=== PATIENT | female | born 1965 | race Caucasian/White ===

== ENCOUNTER 2024-06-07 08:48 | Emergency (ER) | payer MEDICARE, SELFPAY ==
--- NOTE | ~2024-06-07 | XR_ITS ---
EXAMINATION: XR FEMUR 2 VIEWS RIGHT HISTORY: Rt femur pain COMPARISON: There are no prior studies available for comparison. FINDINGS: AP and lateral views of the right femur are submitted. Osseous mineralization is normal. There is no fracture or dislocation. The visualized hip and knee joint spaces are preserved. The soft tissues are unremarkable. XR/XR femur RT 2V IMPRESSION: Unremarkable examination of the right femur. Electronically signed by: Nain Benavidez MD 06/07/2024 11:01 AM [facility]
--- NOTE | ~2024-06-07 | XR_ITS ---
EXAMINATION: XR LUMBAR SPINE 2-3 VIEWS HISTORY: lower back pain COMPARISON: Comparison is made with the prior examination dated 05/26/2014. FINDINGS: AP, lateral, and coned down views of the lumbar spine are submitted. Osseous mineralization is normal. Again seen is moderate rotatory levoscoliosis. Five nonrib-bearing lumbar vertebral bodies are identified, maintaining normal height without evidence of fracture or spondylolisthesis. There is moderate degenerative disc disease at the L3-4 level with disc space narrowing and osteophyte formation. Milder changes are noted at the remaining levels. The posterior elements are intact. The visualized paraspinal soft tissues are unremarkable. XR/XR lumbar spine 2-3V IMPRESSION: Moderate rotatory levoscoliosis. Degenerative disc disease as described. Electronically signed by: Nain Benavidez MD 06/07/2024 11:00 AM [facility]
--- NOTE | ~2024-06-07 | US_ITS ---
EXAMINATION: US NONINVASIVE ASSESSMENT OF THE RIGHT LOWER EXTREMITY WITH ARTERIAL DUPLEX CLINICAL INFORMATION: Right lower extremity pain, swelling. Negative DVT. COMPARISON: None available. TECHNIQUE: Duplex Doppler techniques with waveform analysis and measurement of velocities in the common femoral, profunda femoris, superficial femoral, popliteal and tibial arteries were performed. In addition, ankle pulse volume recordings, ankle pressure measurements and ankle brachial indices were obtained of the lower extremity arterial system. The study was performed only at rest. FINDINGS: RIGHT LOWER EXTREMITY DUPLEX ULTRASOUND. PEAK SYSTOLIC VELOCITIES: Common femoral artery: 108 cm/s. Waveforms: Triphasic Profunda femoris artery: 82 cm/s. Waveforms: Triphasic Superficial femoral artery (proximal): 101 cm/s. Waveforms: Triphasic Superficial femoral artery (mid): 77 cm/s. Waveforms: Triphasic Superficial femoral artery (distal): 75 cm/s. Waveforms: Triphasic Popliteal artery: 96 cm/s Waveforms: Triphasic Posterior tibial artery: 137 cm/s Waveforms: Triphasic US/US arterial duplex LE RT IMPRESSION: Based on peak systolic velocities and wave forms, no evidence of significant major arterial stenosis or occlusion in the RIGHT lower extremity. Electronically signed by: Dayo Lynch MD 06/07/2024 12:13 PM [facility]
--- NOTE | ~2024-06-07 | US_ITS ---
EXAMINATION: US TRIPLEX LOWER EXTREMITY, RIGHT CLINICAL INFORMATION: Right lower extremity swelling. COMPARISON: None available. TECHNIQUE: Color-flow triplex imaging with spectral analysis and compression Doppler were performed on the right lower extremity. FINDINGS: Respiratory variation, normal compression and augmented flow are noted throughout the right lower extremity. The visualized common femoral vein, superficial femoral vein, profunda femoral vein, popliteal vein and midcalf peroneal and posterior tibial venous segments show no evidence of deep venous thrombosis. There is no Sarmiento's cyst. US/US venous duplex LE RT IMPRESSION: No evidence of deep venous thrombosis involving the right lower extremity. Electronically signed by: Dayo Lynch MD 06/07/2024 12:08 PM [facility] [place]
[2024-06-07 09:07] VITALS: BP 115/75; PULSE 107; RESP 18; TEMP 37.3; O2SAT 99; BMI 28.3
--- NOTE | 2024-06-07 09:59 | ED_ITS ---
HPI - Extremity Injury (Lower) General Chief Complaint: Extremity Injury, Lower Stated Complaint: Low back pain r leg pain Time Seen by Provider: 06/07/24 09:12 Source: patient Mode of arrival: ambulatory Limitations: no limitations History of Present Illness ED Provider: ALMA Earl HPI Narrative: This is a 58-year-old female who denies past medical history presenting to the emergency department with complaints of severe right lower extremity pain for the past few days worsening. Patient reports pain is so severe she feels like she is not able to walk.. She says she thinks it is accompanied with back pain however back pain is always present. She reports a sharp pain behind her right thigh. It does not go past her knee. She denies any falls or trauma. When I asked her to point to where it hurts smell she points in her mid thigh region. She denies numbness, tingling, fevers, chills, headache, vision changes, dizziness, recent illness, urinary and bowel incontinence/retention. Related Data Previous Rx's ?Medication ?Instructions ?Recorded gabapentin 300 mg capsule 300 mg PO BID 14 days #28 caps 06/07/24 ketorolac 10 mg tablet 10 mg PO TID PRN pain 5 days #15 06/07/24 tabs Allergies Allergy/AdvReac Type Severity Reaction Status Date / Time tramadol [TRAMADOL] Allergy Unknown NAUSEA/VOMI Verified 06/07/24 09:08 TING Review of Systems 2 Review of Systems: Yes all other systems are reviewed and are negative PMFSH Past Medical History Attestation statement: The following information was validated with the patient. Source: old records reviewed and nursing notes reviewed Social History Social History Smoked in Last 30 Days: Yes Use of substances other than those prescribed or required for medical reasons: No Advance Directives: No Advance Directives Information Provided: Yes Patient : No Physical Exam 2 Vital Signs: Vital Signs: Last Vital Signs Temp 97.1 F 06/07/24 11:58 Pulse 91 06/07/24 11:58 Resp 18 06/07/24 11:58 BP 152/82 H 06/07/24 11:58 Pulse Ox 97 06/07/24 11:58 O2 Del Method Room Air 06/07/24 11:58 BMI result Body Mass Index 28.3 vss Appearance: Alert.? Oriented X3.? No acute distress.? Head: Normocephalic, atraumatic, no step-offs or deformities Eyes: Pupils equal, round and reactive to light.? CVS: Normal heart rate and rhythm.? Pulses normal.? Respiratory: No respiratory distress.? Breath sounds normal.? Abdomen: Soft and nontender.? Skin: Skin warm and dry.? Normal skin color.? Normal skin turgor.? Extremities: No lower extremity edema.? No calf ttp. 5/5 strength to bilateral upper and lower extremities Back: No midline tenderness, no C-spine tenderness, very painful range of motion to lower back pain in all directions. There is right-sided lumbosacral discomfort on palpation. Also discomfort with palpation overlying the right glute. Neuro: Oriented X 3.? No motor deficit.? No sensory deficit. CN 2-12 intact Course Reevaluation(s) Reevaluation #1: CBC unremarkable. Chemistry no acute findings meeting intervention. Mild elevation in BUN however he is tolerating p.o.. Femur x-ray unremarkable. X- ray of lumbar spine moderate relatively levoscoliosis. Degenerative disc disease noted. Venous duplex with no evidence of DVT in the right lower extremity. Lower extremity arterial scan with no evidence of significant major arterial stenosis or occlusion in the right lower extremity. Patient is now ambulatory and states she feels much better. This is supporting the diagnosis of lumbar radiculopathy. Will discharge her home with Toradol and gabapentin. Educated patient on diagnosis and treatment plan, answered all question, patient verbalizes understanding. At this time patient will be discharged home, advised to return with new or worsening symptoms. Educated on worrisome signs and symptoms and when to return. At this time I feel comfortable discharge home. Time: 13:07 Medications Administered Discontinued Medications Generic Name Dose Route Start Last Admin Trade Name Felipeq PRN Reason Stop Dose Admin Gabapentin 300 mg 06/07/24 10:09 06/07/24 10:24 Gabapentin 300 Mg Capsule PO 06/07/24 10:10 300 mg ONCE ONE Administration Ketorolac Tromethamine 30 mg 06/07/24 10:06 06/07/24 10:24 Ketorolac Tromethamine 30 Mg/Ml Vial IM 06/07/24 10:07 30 mg ONCE ONE Administration Medical Decision Making Medical Decision Making MDM Narrative: 58-year-old female presents with low back pain and pain to right lower extremity. Denies falls or trauma. No midline tenderness, no C-spine tenderness, very painful range of motion to lower back pain in all directions. There is right-sided lumbosacral discomfort on palpation. Also discomfort with palpation overlying the right glute. Patient is unable to stand due to severe pain in her right lower extremity. Normal distal sensation to b/l LE. No saddle anesthesias. Palpable pulses to b/l LE History and physical exam most consistent with lumbar radiculopathy likely L5- S1. Unlikely cauda equina, epidural abscess, cord compression. Other differentials that will be ruled out or arterial or venous occlusion due to severe pain and right lower extremity with slight swelling. Plan labs, imaging. Differential Diagnosis Differential Diagnoses: The differential diagnosis associated with the presentation includes (History and physical exam most consistent with lumbar radiculopathy likely L5-S1. Unlikely cauda equina, epidural abscess, cord compression. Other differentials that will be ruled out or arterial or venous occlusion due to severe pain and right lower extremity with slight swelling.) Admission/Observation Consideration of admission/observation: Escalation of care including admission/observation considered Lab Data MDM Lab Attestation statement: I reviewed the patient's lab results. 06/07/24 09:50 06/07/24 09:50 Labs: Lab Results 06/07/24 Range/Units 09:50 WBC 8.1 (4.8-10.8) X10*3/uL RBC 4.50 (4.20-5.50) X10*6/uL Hgb 13.1 (12.0-16.0) g/dl Hct 38.2 (37.0-47.0) % MCV 84.9 (80.0-98.0) fL MCH 29.1 (27.0-33.0) pg MCHC 34.3 (31.0-35.0) g/dl RDW 13.7 (11.0-16.0) % Plt Count 276 (160-400) X10*3/uL MPV 9.7 (9.4-12.3) fL Immature Gran % (Auto) 0.6 H (0.0-0.4) % Neut % (Auto) 71.6 (45-73) % Lymph % (Auto) 14.8 L (20-40) % [place] % (Auto) 12.3 H (2-11) % Eos % (Auto) 0.2 (0-4) % Baso % (Auto) 0.5 (0-2) % Lymph # (Auto) 1.2 (1.2-4.9) X10*3/uL [place] # (Auto) 1.0 (0.1-1.2) X10*3/uL Eos # (Auto) 0.0 (0.0-0.4) X10*3/uL Baso # (Auto) 0.0 (0.0-0.2) X10*3/uL Abs Immat Gran (auto) 0.05 H (0.00-0.03) X10*3/uL Absolute Neuts (auto) 5.8 (2.0-8.3) x10*3/uL Absolute Nucleated RBC 0.000 (0.0-0.012) X10*3/uL Nucleated RBC % (auto) 0.0 (0.0-0.2) /100WBC Sodium 135 (135-145) mmol/L Potassium 4.5 (3.3-5.1) mmol/L Chloride 105 (96-108) mmol/L Carbon Dioxide 18 L (22-29) mmol/L Anion Gap 17 (12-20) BUN 24 H (9-16) mg/dL Creatinine 0.84 (0.5-1.4) mg/dL Estim Creat Clear Calc 76.8 Estimated GFR > 60 Random Glucose 117 H (60-115) mg/dL Calcium 10.2 (8.4-10.2) mg/dL Magnesium 2.1 (1.6-2.6) mg/dL Total Bilirubin 0.7 (0.0-1.0) mg/dL AST 25 (5-31) U/L ALT 24 (0-31) U/L Alkaline Phosphatase 101 (39-117) U/L Total Protein 8.7 H (6.5-8.0) g/dL Albumin 4.1 (3.5-5.0) g/dL Independent Interpretation I performed an independent interpretation of an: Plain X-Ray and Ultrasound Radiology Impression Discussion of test interpretation with radiology: I have reviewed the radiologist's reading. Prescription Management I considered prescription management with: Pain Medication Chronic Conditions Patient?s care impacted by: Other Discharge Plan Discharge Clinical Impression: Lumbar radiculopathy, right, Acute pain of right lower extremity Patient Disposition: Home, Self-Care Instructions: Lumbar Radiculopathy (ED) Additional Instructions: Take your medications as prescribed. If you were prescribed antibiotics today, it is important that you take your medication to their entirety, do not skip any doses, do not finish them early. Follow-up with your primary care provider this week. Return to the emergency department with new or worsening symptoms. Such as fevers, chills, chest pain, shortness of breath, nausea, vomiting, dizziness, headache, vision changes, lethargy In case of emergency call 911 Toradol has been sent to your pharmacy, you tolerated this well in the department. Please take this as prescribed do not take this with ibuprofen, or other NSAIDs, do not mix this with alcohol. Side effects of this medication including increased risk for bleeding and possible kidney injury. Prescriptions: New gabapentin 300 mg capsule 300 mg PO BID 14 Days Qty: 28 0RF ketorolac 10 mg tablet 10 mg PO TID PRN (Reason: pain) 5 Days Qty: 15 0RF Rx Instructions: Tolerated IM or IV in department Referrals: Physician,None [Primary Care Provider] - 2 days Stand Alone Forms: Work/School Release Print Language: Divehi
[2024-06-07 10:05] LABS: MANUAL DIFF FLAG NO
[2024-06-07 10:09] LABS: Basophils Percent Auto 0.5 % (0-2); Eosinophils Percent Auto 0.2 % (0-4); Hematocrit 38.2 % (37.0-47.0); Hemoglobin 13.1 g/dl (12.0-16.0); Imm Gran Abs Auto 0.05 X10*3/uL (0.00-0.03); Imm Gran Pct Auto 0.6 % (0.0-0.4); Lymphocytes Absolute Auto 1.2 X10*3/uL (1.2-4.9); Lymphocytes Percent Auto 14.8 % (20-40); Mean Corpuscular HGB Conc 34.3 g/dl (31.0-35.0); Mean Corpuscular Hemoglobin 29.1 pg (27.0-33.0); Mean Corpuscular Volume 84.9 fL (80.0-98.0); Mean Platelet Volume 9.7 fL (9.4-12.3); Monocytes Percent Auto 12.3 % (2-11); Neutrophils Absolute Auto 5.8 x10*3/uL (2.0-8.3); Neutrophils Percent Auto 71.6 % (45-73); Platelet Count 276 X10*3/uL (160-400); Red Cell Distribution Width 13.7 % (11.0-16.0); White Blood Count 8.1 X10*3/uL (4.8-10.8)
[2024-06-07] MEDS: Ketorolac Tromethamine 30 MG/ML VIAL IM (10:24)
[2024-06-07] MEDS: Gabapentin 300 MG CAPSULE PO (10:24)
--- NOTE | 2024-06-07 10:27 | PC.NURSE ---
medication administered per provider order. effectiveness pending. pt waiting to go to xray at this time.
[2024-06-07 10:31] LABS: Alanine Aminotransferase 24 U/L (0-31); Albumin Level 4.1 g/dL (3.5-5.0); Alkaline Phosphatase 101 U/L (39-117); Anion Gap 17 (12-20); Aspartate Amino Transferase 25 U/L (5-31); Bilirubin Total 0.7 mg/dL (0.0-1.0); Blood Urea Nitrogen 24 mg/dL (9-16); Calcium 10.2 mg/dL (8.4-10.2); Carbon Dioxide 18 mmol/L (22-29); Chloride 105 mmol/L (96-108); Creatinine Clr Calc Pharmacy 76.8; Estimated Glomerular Filt Rate > 60; Glucose Random 117 mg/dL (60-115); Magnesium 2.1 mg/dL (1.6-2.6); Potassium 4.5 mmol/L (3.3-5.1); Sodium 135 mmol/L (135-145); Total Protein 8.7 g/dL (6.5-8.0)
[2024-06-07 11:58] VITALS: BP 152/82; PULSE 91; RESP 18; TEMP 36.2; O2SAT 97
--- NOTE | 2024-06-07 13:04 | PC.NURSE ---
pt verbalizes decreased pain s/p medication administration. ambulatory w/o any assistive devices. no difficulties in ambulation noted. provider aware.
[2024-06-07 13:18] VITALS: BP 152/82; PULSE 91; RESP 18; TEMP 36.2; O2SAT 97
== END 2024-06-07 13:22 | disposition home or self-care (01) ==
PROVIDERS: Physician Assistant; Emergency Provider Emergency Medicine
DX: M54.16 Radiculopathy, lumbar region (principal); M54.50 Low back pain, unspecified; M79.604 Pain in right leg; R60.0 Localized edema; Z79.899 Other long term (current) drug therapy
CPT/HCPCS: 36415; 72100; 73552; 80053; 83735; 85025; 93926; 93971; 96372; 99284; J1885

== ENCOUNTER → 2024-06-07 10:05 | Outpatient (BNV) | payer MEDICARE, SELFPAY | PROVIDERS: Emergency Provider Emergency Medicine; Visit Provider Radiology Diagnostic Radiology | DX: M79.604 Pain in right leg (principal); R22.41 Localized swelling, mass and lump, right lower limb; M41.86 Other forms of scoliosis, lumbar region; M51.360 Other intervertebral disc degeneration, lumbar region with discogenic back pain only; M79.651 Pain in right thigh | CPT/HCPCS: 93926; 93971 ==